=== PATIENT | male | born 2000 | race Hispanic/Latino ===

== ENCOUNTER 2020-03-14 13:59 | Emergency (ER) | payer SELFPAY ==
[2020-03-14] MEDS ORDERED: Boostrix 0.5 ML (Tdap) VIAL ONE (14:26)
--- NOTE | 2020-03-14 14:42 | CT ---
EXAM: Brain CTWithout contrast: HISTORY: Injury, fall COMPARISON: None FINDINGS: Right parietal scalp injury No focal mass or midline shift. No intra or extra-axial hemorrhage. Sinuses and mastoids are clear of acute process. IMPRESSION: No mass or bleed or other significant acute intracranial process.
== END 2020-03-14 15:35 | disposition home or self-care (01) ==
LOC: ERS 13:59
DX: S01.01XA Laceration without foreign body of scalp, initial encounter (principal); S50.311A Abrasion of right elbow, initial encounter; W19.XXXA Unspecified fall, initial encounter; Y92.39 Other specified sports and athletic area as the place of occurrence of the external cause; Z23 Encounter for immunization
CPT/HCPCS: 12001; 70450; 90471; 90715